=== PATIENT | male | born 1980 | race Caucasian/White ===

== ENCOUNTER → 2019-12-30 | Outpatient (CLI) | payer OTHER ==
[~2019-12-30] MED LIST: CODACE30 PO; CYCL10 PO; RXCODACET PO
[2020-01-01 00:09] LABS: CHLAMYDIA TRACHOMATIS, NAA Negative (Negative); NEISSERIA GONORRHOEAE, NAA Negative (Negative)
== END | disposition home or self-care (01) ==
LOC: LAB SHORT 11:34 → LAB EV 11:34
PROVIDERS: Family Medicine
DX: Z72.51 High risk heterosexual behavior (principal)
CPT/HCPCS: 87491; 87591

== ENCOUNTER 2024-05-11 07:54 | Observation (INO) | payer SELFPAY ==
[~2024-05-11] VITALS: Ht 167.6 cm; Wt 69.8 kg
[2024-05-11] MEDS ORDERED: LORazepam 2 MG/ML 1ML Injection IM ONE ×2 (08:05→09:00)
[2024-05-11] MEDS ORDERED: NS 1,000 ML IV SCH ×4 (08:20→17:05)
[2024-05-11 08:34] LABS: BASOPHILS ABSOLUTE AUTO 0.05 K/mm3 (0.00-0.23); BASOPHILS PERCENT AUTO 0 % (0-2); EOSINOPHILS PERCENT AUTO 0 % (0-6); Hemoglobin 15.7 g/dL (13.5-17.5); IMMATURE GRAN ABSOLUTE AUTO 0.07 K/mm3 (0.00-0.10); IMMATURE GRAN PERCENT AUTO 1 % (0-1); LYMPHOCYTES ABSOLUTE AUTO 1.01 K/mm3 (0.84-5.20); LYMPHOCYTES PERCENT AUTO 7 % (21-46); MONOCYTES ABSOLUTE AUTO 0.52 K/mm3 (0.16-1.47); MONOCYTES PERCENT AUTO 4 % (4-13); Mean Corpuscular HGB 31.8 pg (26.0-34.0); Mean Corpuscular HGB Conc 35.7 g/dL (31.5-36.5); Mean Corpuscular Volume 89 fL (80-100); Mean Platelet Volume 9.3 fL (9.1-12.4); NEUTROPHILS ABSOLUTE AUTO 12.84 K/mm3 (1.96-9.15); NEUTROPHILS PERCENT AUTO 89 % (41-73); Platelet Count 305 K/mm3 (150-400); RDW Coefficient Variation 12.5 % (11.7-14.2); RDW Standard Deviation 41.1 fL (35.1-46.3); Red Blood Cell Count 4.94 M/mm3 (4.30-5.90); White Blood Cell Count 14.49 K/mm3 (4.00-11.30)
[2024-05-11 08:59] LABS: Ethanol (Alcohol), Blood, Med <3 mg/dL; Free Thyroxine 1.63 ng/dL (0.70-1.60); Salicylate 2.1 mg/dL (2.8-20.0)
[2024-05-11 09:01] LABS: Thyroid Stimulating Hormone 0.998 uIU/mL (0.360-4.800)
[2024-05-11 09:06] LABS: Alanine Aminotransfer (ALT/SGP 70 U/L (12-78); Albumin, Blood 4.7 g/dL (3.4-5.0); Albumin/Globulin Ratio 1.4 (0.8-1.8); Alk Phos 96 U/L (50-136); Anion Gap 13 mmol/L (3-11); Aspartate Aminotrans (AST/SGOT 91 U/L (12-37); Bilirubin, Total 1.4 mg/dL (0.1-1.0); Blood Urea Nitrogen 27 mg/dL (8-24); Bun/Creatinine Ratio 14.4 (12.0-20.0); CO2, Blood 25 mmol/L (21-32); Calcium, Blood 9.3 mg/dL (8.5-10.1); Chloride, Blood 108 mmol/L (98-108); Creatinine, Blood 1.88 mg/dL (0.60-1.20); Globulin, Blood 3.4 g/dL (2.2-4.0); Glomerular Filtration Rate 45 (60-); Glucose, Blood 102 mg/dL (70-99); Sodium, Blood 142 mmol/L (136-145); Total Protein, Blood 8.1 g/dL (6.4-8.2)
[2024-05-11 09:07] LABS: Acetaminophen, Random <2.0 ug/mL (10.0-30.0)
[2024-05-11] MEDS ORDERED: DiphenhydrAMINE HCl 50 MG/ML 1ML Vial IV ONE (09:30)
[2024-05-11] MEDS ORDERED: Haloperidol Lactate Inj. 5 MG/ML Injection IV ONE (09:30)
[2024-05-11] MEDS ORDERED: LORazepam 2 MG/ML 1ML Injection IV ONE ×3 (09:30→12:50)
[2024-05-11 10:00] LABS: U Amphetamine Screen Not Detected; U Barbituate Screen Not Detected; U Benzodiazapine Screen Not Detected; U Buprenorphine Screen Not Detected; U Cannabinoids Screen DETECTED; U Cocaine Screen Not Detected; U Methadone Screen Not Detected; U Methamphetamine Screen Not Detected; U Opiates Screen Not Detected; U Oxycodone Screen Not Detected; U Phencyclidine Screen Not Detected
[2024-05-11] MEDS ORDERED: CefTRIAXone Sodium 1,000 MG in NS 100 ML IV ONE (10:35)
[2024-05-11] MEDS ORDERED: Magnesium Hydroxide Conc 10 ML UDC PO PRN (13:40)
[2024-05-11] MEDS ORDERED: FLU VACC TS2024-25(6MOS UP)/PF 45 MCG/0.5 ML SYRINGE IM SCH (13:40)
[2024-05-11] MEDS ORDERED: Haloperidol Lactate Inj. 5 MG/ML Injection IM PRN (13:40)
[2024-05-11] MEDS ORDERED: OLANZapine 5 MG Tab PO PRN (16:45)
[2024-05-11] MEDS ORDERED: OLANZapine 10 MG Vial IM PRN (16:45)
--- NOTE | 2024-05-11 19:21 | NUR ---
report received from er. pt arrived kicking and screaming, was not attempting to be violent, pt seemed confused and very disoriented. pt was able to be helped oout of the bed and assisted with using a urinal. once pt used urinal he became calm and layed down in the bed and went to sleep. assessment was done but no family available to help woth history. tele on and iv infusing zyprexa given im for agitation.
[2024-05-11 21:17] LABS: Source, Urine Clean Catch
[2024-05-11 21:23] LABS: Appearance, Urine Clear (Clear); Bilirubin, Urine Neg (Neg); Blood, Urine Neg (Neg); Color, Urine Yellow (P-Yellow); Glucose Qualitative, Urine Neg (Neg); Ketones, Urine 3+ (Neg); Leukocyte Esterase, Urine Neg (Neg); Nitrite, Urine Neg (Neg); Protein, Urine 1+ (Neg); Urobilinogen, Urine NORM (Normal)
[2024-05-11 21:30] VITALS: BP 110/56
[2024-05-11 21:48] LABS: U Cannabinoids Screen DETECTED; U Methamphetamine Screen DETECTED
[2024-05-11 21:49] LABS: U Amphetamine Screen DETECTED; U Barbituate Screen Not Detected; U Benzodiazapine Screen DETECTED; U Buprenorphine Screen Not Detected; U Cocaine Screen Not Detected; U Methadone Screen Not Detected; U Opiates Screen Not Detected; U Oxycodone Screen Not Detected; U Phencyclidine Screen Not Detected
[2024-05-12 01:35] VITALS: BP 109/67
[2024-05-12 06:18] LABS: Hematocrit 41.7 % (37.0-53.0); Hemoglobin 14.2 g/dL (13.5-17.5); Mean Corpuscular HGB 31.7 pg (26.0-34.0); Mean Corpuscular HGB Conc 34.1 g/dL (31.5-36.5); Mean Corpuscular Volume 93 fL (80-100); Mean Platelet Volume 9.4 fL (9.1-12.4); Platelet Count 201 K/mm3 (150-400); RDW Coefficient Variation 12.9 % (11.7-14.2); RDW Standard Deviation 44.2 fL (35.1-46.3); Red Blood Cell Count 4.48 M/mm3 (4.30-5.90); White Blood Cell Count 8.47 K/mm3 (4.00-11.30)
[2024-05-12 06:37] VITALS: BP 149/86
[2024-05-12 06:43] LABS: Bun/Creatinine Ratio 18.5 (12.0-20.0); Calcium, Blood 8.1 mg/dL (8.5-10.1); Creatinine, Blood 1.08 mg/dL (0.60-1.20); Potassium, Blood 3.6 mmol/L (3.5-5.5)
[2024-05-12 07:56] VITALS: BP 135/85
--- NOTE | 2024-05-12 08:04 | NUR ---
SHIFT SUMMARY PT UNRESPONSIVE. OPENS HIS EYES TO PRESSURE FOR A SECOND OR TWO, THEN CLOSES THEM AGAIN AND IS DIFFICULT TO STIR. UNABLE TO COMPLETE ASSESSMENTS. PT WOKE APPROX 0430 ANGRY AND YELLING. SPOKE WITH PT ABOUT BEING A CONFIDENTIAL PT. PT STATED HE WOULD LIKE TO BE LISTED CONFIDENTIAL. HIS BROTHER "LEONOR LONG" IS THE ONLY PERSON ALLOWED TO RECEIVE INFORMATION. WILL RELAY TO DAY SHIFT.
[2024-05-12] MEDS ORDERED: Enoxaparin 40 MG/0.4 ML SYR SC SCH (09:00)
--- NOTE | 2024-05-12 11:35 | NUR ---
DISCHARGE SUMMARY PT DC THIS SHIFT. DC INSTRUCTION GONE OVER WITH PT WHOM STATED UNDERSTANDING. PT DENIED WANTING STAFF TO ASSIST OUT. PT NOTED TO WALK OUT WITH FRIEND. PT GAIT NOTED TO BE STEADY.
[2024-05-12] MEDS ORDERED: CefTRIAXone Sodium 1,000 MG in NS 100 ML IV SCH (12:00)
[2024-05-13 02:14] LABS: MYOGLOBIN SERUM 1142 ng/mL (<=72)
== END 2024-05-12 11:25 | disposition home or self-care (01) ==
LOC: ER 07:54 → MEDS 07:55
PROVIDERS: Emergency Medicine; Nurse Practitioner Acute Care; ADMIT Internal Medicine
DX: G92.8 Other toxic encephalopathy (principal); N17.9 Acute kidney failure, unspecified; D72.829 Elevated white blood cell count, unspecified; M62.82 Rhabdomyolysis; N39.0 Urinary tract infection, site not specified; F17.210 Nicotine dependence, cigarettes, uncomplicated; A41.9 Sepsis, unspecified organism
CPT/HCPCS: 36415; 70450; 80048; 80053; 80320; 81001; 82140; 82550; 83605; 83874; 84439; 84443; 85025; 85027; 87040; 93005; 93010; 96365; 96372; 96372-59; 96375; 96376; 99285-25; G0378; G0480; J0696; J1200; J1630; J2060; J7030